=== PATIENT | male | born 1970 | race Two or more races ===

== ENCOUNTER 2019-09-07 09:22 | Day surgery (SDC) | payer BC ==
[2019-09-07] VITALS (7 sets, daily range): BP systolic 115–134; BP diastolic 71–84
[~2019-09-07] VITALS: Ht 182.9 cm; Wt 79.4 kg
--- NOTE | 2019-09-07 07:51 | Anethesia Preoperative Eval ---
Anesthesia Pre-op PMH/ROS General Date of Evaluation: Sep 07, 2019 Time of Evaluation: 07:50 Anesthesiologist: simba ASA Score: ASA 3 Mallampati Score Class I : Soft palate, uvula, fauces, pillars visible Class II: Soft palate, uvula, fauces visible Class III: Soft palate, base of uvula visible Class IV: Only hard plate visible Mallampati Classification: Class II Surgeon: garry Diagnosis: dysphagia Surgical Procedure: egd Anesthesia History: none Social History: smoking - nonsmoker Family History: no anesthesia problems Allergies: Coded Allergies: No Known Allergies (Unverified , 09/07/19) Medications: see eMAR Patient NPO?: Yes Past Medical History Pulmonary: Reports: asthma Gastrointestinal/Genitourinary: Reports: GERD Anesthesia Pre-op Phys. Exam Physician Exam Last Vital Signs Date Time Temp Pulse Resp B/P (MAP) Pulse Ox O2 Delivery O2 Flow Rate FiO2 09/07/19 09:53 Room Air 09/07/19 09:48 98.3 67 18 124/80 98 Constitutional: NAD Neurologic: CN 2-12 intact Cardiovascular: RRR Respiratory: CTA Gastrointestinal: S/NT/ND Airway Exam Mallampati Score: Class II MO: full Neck: flexible TMD: 2fb ROM: full Anesthesia Pre-op A/P Risk Assessment & Plan Assessment: asa3 Plan: mac Status Change Before Surgery: No Pre-Antibiotics Drug: Marie Steinberg MD Sep 07, 2019 07:51
[~2019-09-07 09:22] MED LIST: Atropine Inj 1mg/10ml Syr IV PRN; DiphenhydrAMINE 50mg/ml Inj IVP PRN; LR 1000ml 1,000 ML IVLG SCH; Midazolam 2mg/2ml Inj IVP PRN; fentaNYL 100 mcg/2 mL IV PRN
[2019-09-07] MEDS ORDERED: Lidocaine 1% MPF 10mg/ml 5ml ONE (10:00)
[2019-09-07] MEDS ORDERED: Propofol 200mg/20ml IV ONE (10:00)
[2019-09-07] MEDS ORDERED: LR 1000ml ONE (10:00)
--- NOTE | 2019-09-07 10:14 | Pre-Procedure Note/Attestation ---
Pre-Procedure Note/Attestation Complete Prior to Procedure Planned Procedure: not applicable Procedure Narrative: egd Indications for Procedure Pre-Operative Diagnosis: dysphagia Attestation I attest that I discussed the nature of the procedure; its benefits; risks and complications; and alternatives (and the risks and benefits of such alternatives ), prior to the procedure, with the patient (or the patient's legal construction representative). I attest that, if there was a reasonable possibility of needing a blood transfusion, the patient (or the patient's legal construction representative) was given the [facility] standardized written summary, pursuant to the Stiven [employer] Blood Safety Act ([place] Health and Safety Code # 1645, as amended). I attest that I re-evaluated the patient just prior to the surgery and that there has been no change in the patient's H&P, except as documented below: Marshal Ni MD Sep 07, 2019 10:14
--- NOTE | 2019-09-07 10:15 | Short Stay Surgery H&P ---
History of Present Illness History of Present Illness Chief Complaint dysphagia HPI Colin Gamboa is a 49 year old male who was admitted on for Dysphagia Patient History Allergies: Coded Allergies: No Known Allergies (Unverified , 09/07/19) PAST MEDICAL HISTORY: (1) Asthma Medication History No Active Prescriptions or Reported Meds Review of Systems Cardiovascular: Reports: no symptoms Respiratory: Reports: no symptoms Skeletal: Reports: no symptoms Gastrointestinal: Reports: gastro esophageal reflux disease Genitourinary: Reports: no symptoms Neurologic: Reports: no symptoms Endocrine: Reports: no symptoms Hematologic: Reports: no symptoms Physical Exam Vital Signs Last Vital Signs Date Time Temp Pulse Resp B/P (MAP) Pulse Ox O2 Delivery O2 Flow Rate FiO2 09/07/19 09:53 Room Air 09/07/19 09:48 98.3 67 18 124/80 98 Skin: normal HENT: normal Heart: normal Lungs: normal Abdomen: normal Extremities: normal Plan Plan of Care EGD Attestation Are the patient's medical conditions optimized for surgery? Attestation Response: yes Marshal Ni MD Sep 07, 2019 10:15
--- NOTE | 2019-09-07 10:40 | Endoscopy Procedure Note ---
Endoscopy Procedure Note General Indication for Procedure: dysphagia Procedures Performed: EGD Operative Findings/Diagnosis: gastritis Specimen: yes Pt Tolerated Procedure Well: Yes Estimated Blood Loss: none Anesthesia Anesthesiologist: yung Anesthesia: MAC Inserted Devices Implant(s) used?: No GI Core Measures 50 yrs or older w/o bx or poly: Not Applicable 10yrs. F/U recommended: Not Applicable Marshal Ni MD Sep 07, 2019 10:40
--- NOTE | 2019-09-07 10:58 | Immediate Post-Op Evaluation ---
Immediate Post-Op Evalulation Immediate Post-Op Evalulation Procedure: egd w/bx Date of Evaluation: Sep 07, 2019 Time of Evaluation: 10:57 IV Fluids: 150ml lr Blood Products: none Estimated Blood Loss: negligible Blood Pressure Systolic: 130 Blood Pressure Diastolic: 78 Pulse Rate: 65 Respiratory Rate: 18 O2 Sat by Pulse Oximetry: 100 Temperature (Fahrenheit): 97.5 Pain Score (1-10): 0 Nausea: No Vomiting: No Complications none Patient Status: awake, reacts, patent Hydration Status: adequate Drug: Marie Steinberg MD Sep 07, 2019 10:58
--- NOTE | 2019-09-07 11:00 | 48 Hour Post Anesthesia Eval ---
Post Anesthesia Evaluation Procedure: egd w/bx Date of Evaluation: Sep 07, 2019 Time of Evaluation: 10:59 Blood Pressure Systolic: 134 0: 79 Pulse Rate: 66 Respiratory Rate: 18 Temperature (Fahrenheit): 97.5 O2 Sat by Pulse Oximetry: 100 Airway: patent Nausea: No Vomiting: No Pain Intensity: 0 Hydration Status: adequate Cardiopulmonary Status: stable Mental Status/LOC: patient returned to baseline Post-Anesthesia Complications: none Follow-up care needed: N/A Marie Alexander MD Sep 07, 2019 11:00
--- NOTE | 2019-09-07 15:45 | Procedure Note ---
DATE OF PROCEDURE: 09/07/2019 SURGEON: Marshal Ni M.D. PROCEDURE: Upper endoscopy with biopsy. ANESTHESIA: Per Dr. Madrigal. INSTRUMENT: Olympus adult flexible upper endoscope. INDICATION: Dysphagia. REASON FOR PROCEDURE: The procedure, risks, benefits, and possible consequences, including hemorrhage, aspiration, perforation and infection, and alternative treatments, were explained to the patient/legal guardian by Dr. Marshal Ni and the patient/legal guardian understood and accepted these risks. DESCRIPTION OF PROCEDURE: After informed consent was obtained and the patient was adequately sedated, Olympus upper endoscope was advanced from mouth into the second portion of the duodenum and retroflexion was performed in the stomach. The patient had diffuse gastritis. Random biopsy from antrum was obtained to rule out H. pylori infection. The patient also has evidence of some findings suggestive of eosinophilic esophagitis but not classical. Biopsy from distal esophagus and mid esophagus was obtained. The patient tolerated procedure very well without complication. SUMMARY OF FINDINGS: 1. Gastritis, status post biopsy. 2. Gastroesophageal junction at 40 cm from the incisor. 3. Questionable eosinophilic esophagitis status post biopsy. RECOMMENDATIONS: 1. Follow up biopsy results and treat accordingly . 2. The patient to be followed in the office in a week or two. 3. We are going to trial of the PPI daily, omeprazole 40 mg daily. Marshal Ni M.D. DR: Shaye JOB#: [id number] CC:
== END 2019-09-07 11:30 | disposition home or self-care (01) ==
LOC: GAS 09:22
DX: R13.10 Dysphagia, unspecified (principal); K21.9 Gastro-esophageal reflux disease without esophagitis; K29.50 Unspecified chronic gastritis without bleeding
CPT/HCPCS: 43239; J2704; J7120; 94003; 94150